=== PATIENT | male | born 1950 | race Caucasian/White ===

== ENCOUNTER 2018-08-01 05:58 | Day surgery (SDC) | payer MEDICARE ==
[~2018-08-01] VITALS: Ht 185.4 cm; Wt 97.7 kg
[~2018-08-01 05:58] MED LIST: ALLO300 PO; NORT10 PO; RINGERS SOLUTION,LACTATED 1,000 ML IV ONE
[2018-08-01] MEDS ORDERED: RINGERS SOLUTION,LACTATED 1,000 ML IV SCH (06:00)
[2018-08-01] MEDS ORDERED: MUPIROCIN CALCIUM 2% 22 GM OINTMENT ONE (06:17)
[2018-08-01] MEDS ORDERED: BUPIVACAINE HCL/PF 0.5% 30 ML VIAL ONE (06:17)
[2018-08-01] MEDS ORDERED: VANCOMYCIN HCL 1 GM/VIAL ONE (06:17)
[2018-08-01] MEDS ORDERED: SODIUM CL IRRIG SOLN BAG 3,000 ML IRRIG ONE (06:18)
[2018-08-01] MEDS ORDERED: SUGAMMADEX SODIUM 200 MG/2 ML VIAL IVP ONE (06:59)
[2018-08-01] MEDS ORDERED: MEPERIDINE-PF 25 MG/ML VIAL IVP PRN (07:30)
[2018-08-01] MEDS ORDERED: FentaNYL CITRATE-PF 100 MCG/2 ML VIAL IVP PRN (07:30)
[2018-08-01] MEDS ORDERED: HYDROmorphone 2 MG/ML SYRINGE IVP PRN (07:30)
[2018-08-01] MEDS ORDERED: OXYGEN THERAPY IH SCH (08:00)
[2018-08-01] MEDS ORDERED: RINGERS SOLUTION,LACTATED 1,000 ML IV ONE (08:19)
[2018-08-01] MEDS ORDERED: LIDOCAINE/PF 2% 5 ML SYRINGE IVP ONE (12:00)
[2018-08-01] MEDS ORDERED: FentaNYL CITRATE-PF 100 MCG/2 ML VIAL IVP ONE (12:00)
[2018-08-01] MEDS ORDERED: PROPOFOL 1% 20 ML VIAL IVP ONE (12:00)
[2018-08-01] MEDS ORDERED: ROCURONIUM BROMIDE 10 MG/ML 5 ML VIAL IVP ONE (12:00)
== END 2018-08-01 10:25 | disposition home or self-care (01) ==
LOC: SURGERY 05:58
PROVIDERS: ATTEND Orthopaedic Surgery
DX: M14.671 Charcot's joint, right ankle and foot (principal); Z47.2 Encounter for removal of internal fixation device; Z47.89 Encounter for other orthopedic aftercare; G62.9 Polyneuropathy, unspecified; E11.9 Type 2 diabetes mellitus without complications; M10.9 Gout, unspecified; Z88.8 Allergy status to other drugs, medicaments and biological substances; Z96.642 Presence of left artificial hip joint; Z98.890 Other specified postprocedural states
CPT/HCPCS: 20680; 20694; 76000; 77071; J2704; J3010; J3370; J3490 ×2; J7120